=== PATIENT | female | born 1980 | race Caucasian/White ===

== ENCOUNTER → 2017-02-14 | Outpatient (CLI) | payer OTHER ==
[2016-08-14 23:42] VITALS: BP 108/68
--- NOTE | 2017-02-14 16:20 | RAD ---
HISTORY: Right foot pain. Study: Right foot three views Comparison: None. Findings: No acute cortical disruption or dislocation can be identified. No significant soft tissue swelling o r injury can be seen. The visualized portions of the talus and calcaneus are unremarkable. IMPRESSION: 1. Negative exam. Reported By:
== END | disposition home or self-care (01) ==
LOC: RAD 15:19
PROVIDERS: ATTEND Family Medicine
DX: M79.671 Pain in right foot (principal)
CPT/HCPCS: 73630